=== PATIENT | female | born 1930 | race Caucasian/White ===

== ENCOUNTER 2018-01-15 20:34 | Emergency (ER) | payer MEDICARE ==
[2018-01-15 20:51] VITALS: BP 174/90; PULSE 80; RESP 20; TEMP 98.4
--- NOTE | 2018-01-15 21:50 | XR ---
EXAMINATION TYPE: XR knee complete LT DATE OF EXAM: 01/15/2018 COMPARISON: NONE HISTORY: Knee pain TECHNIQUE: 3 views FINDINGS: I see no fracture nor dislocation. There is spurring on the superior patella. There is vasc ular calcification. There is mild narrowing of the medial joint space. IMPRESSION: No acute abnormality of the left knee. No fracture.
--- NOTE | 2018-01-15 21:57 | ED ---
Lower Extremity Injury HPI - General Chief Complaint: Extremity Injury, Lower Stated Complaint: Knee injury Time Seen by Provider: 01/15/18 21:02 Source: patient, family, RN notes reviewed, old records reviewed Mode of arrival: ambulatory Limitations: no limitations - History of Present Illness Initial Comments: This Patient is an 87-year-old female who presents emergency room today with her friends with chief complaint of left knee pain. Patient reports that she twisted her knee wrong when she was putting things away in the fridge. She reports no pain with range of motion but only pain with ambulation. Patient states that she's had no numbness tingling or leg. No previous injury. - Related Data Previous Rx's Medication Instructions Recorded Naproxen [EC-Naprosyn] 500 mg PO BID #20 tablet. 01/15/18 Allergies Allergy/AdvReac Type Severity Reaction Status Date / Time No Known Allergies Allergy Verified 01/15/18 20:51 Review of Systems ROS Statement: Those systems with pertinent positive or pertinent negative responses have been documented in the HPI. ROS Other: All systems not noted in ROS Statement are negative. Past Medical History Past Medical History: Hyperlipidemia, Hypertension History of Any Multi-Drug Resistant Organisms: None Reported Past Surgical History: No Surgical Hx Reported Past Psychological History: No Psychological Hx Reported Smoking Status: Never smoker Past Alcohol Use History: None Reported Past Drug Use History: None Reported General Exam - General Exam Comments Initial Comments: Well-appearing 87-year-old female. No acute distress. General: Well appearing, well nourished, in no distress. Oriented x 3, normal mood and affect . Ambulating without difficulty. Skin: Good turgor, no rash, unusual bruising or prominent lesions Hair: Normal texture and distribution. HEENT: Head: Normocephalic, atraumatic, no visible or palpable masses, depressions, or scaring. Eyes: Visual acuity intact, conjunctiva clear, sclera non-icteric, EOM intact, PERRL. Ears: EACs clear, TMs translucent & cone of light visualized. hearing intact. Nose: No external lesions, mucosa non-inflamed, septum and turbinates normal Mouth: Mucous membranes moist, no mucosal lesions. Teeth/Gums: No obvious caries or periodontal disease. No gingival inflammation or significant resorption. Pharynx: Mucosa non-inflamed, no tonsillar hypertrophy or exudate Neck: Supple, without lesions, bruits, or adenopathy, thyroid non-enlarged and non-tender Heart: No cardiomegaly or thrills; regular rate and rhythm, no murmur or gallop Lungs: Clear to auscultation and percussion Abdomen: Bowel sounds normal, no tenderness, organomegaly, masses, or hernia Back: Spine normal without deformity or tenderness, no CVA tenderness Extremities: Patient has full range motion of the left knee. Normal pulses distally. Normal sensation range motion of the toes. No deformities noted of the leg. Musculoskeletal: Normal gait and station. No misalignment, asymmetry, crepitation, defects, tenderness, masses, effusions, decreased range of motion, instability, atrophy or abnormal strength or tone in the head, neck, spine, ribs , pelvis or extremities. Neurologic: CN 2-12 normal. Sensation to pain, touch, and proprioception normal. DTRs normal in upper and lower extremities. No pathologic reflexes. Limitations: no limitations Course Vital Signs 01/15/18 20:46 Temperature 98.4 F Pulse Rate 80 Respiratory 20 Rate Blood Pressure 174/90 O2 Sat by Pulse 97 Oximetry Medical Decision Making - Medical Decision Making Patient is an 87-year-old female who presents emergency room today with left knee pain. Patient reports she twisted while she was putting fluid within the fridge. She has full range of motion of the knee. No laxity noted. Normal pulses and sensation distally. There is no crepitus or deformity of the knee. X-rays were completed today and was normal. Discussed likely she has maybe a meniscal tear or sprain. Discussed putting the Patient in the wrap and having her follow-up with orthopedics and given a prescription for crutches and a temperature medication. Patient agrees to treatment plan will comply. Return parameters were discussed. - Radiology Data Radiology results: report reviewed Normal left knee x-ray. Disposition Clinical Impression: Knee sprain Disposition: HOME SELF-CARE Condition: Good Instructions: Knee Sprain (ED) Additional Instructions: Patient advised to talk to primary care physician and ortho. Return to emergency department if any alarming signs or symptoms occur. Prescriptions: Naproxen [EC-Naprosyn] 500 mg PO BID #20 tablet.dr Is patient prescribed a controlled substance at d/c from ED?: No Referrals: Tommy Cornelius MD [Primary Care Provider] - 1-2 days David Dobson MD [STAFF PHYSICIAN] - 1-2 days Time of Disposition: 21:54
== END 2018-01-15 22:21 | disposition home or self-care (01) ==
LOC: EC 20:34
DX: S83.92XA Sprain of unspecified site of left knee, initial encounter (principal); X50.1XXA Overexertion from prolonged static or awkward postures, initial encounter; Y93.89 Activity, other specified
CPT/HCPCS: 73562; 99284; L1830 ×2

== ENCOUNTER 2018-06-04 08:41 | Day surgery (SDC) | payer MEDICARE ==
[2018-06-01 14:43] VITALS: BMI 21.9
[~2018-06-04 08:41] MED LIST: SODIUM CHLORIDE 0.9% 1,000 ML IV SCH
[2018-06-04 09:17] VITALS: RESP 20; TEMP 97.6
[2018-06-04] MEDS ORDERED: SODIUM CHLORIDE 0.9% 500 ML 500 ML IV ONE (10:10)
[2018-06-04 11:45] VITALS: BP 120/60
--- NOTE | 2018-06-04 20:23 | P.PCN ---
Preoperative Diagnosis: Diagnosis syncope Twelve-lead ECG shows sinus rhythm mildly prolonged MO interval interval of [address] segments no delta waves normal QT interval Tilt table test per protocol Baseline blood pressure 140/68 mmHg Baseline 156 beats a minute. Patient was tilted upright at an angle of 70 per protocol. There was any major drop in her blood pressure to 126/65 mmHg and the progressive decline to 75 mmHg. She felt shaky she was unresponsive and she was laid supine her blood pressure normalized 221/61 mmHg Likely severe orthostatic hypotension syndrome/dysautonomia, with immediate drop in blood pressure without a comments that it increase in heart rate
== END 2018-06-04 11:44 | disposition home or self-care (01) ==
LOC: CATHEP 08:41
PROVIDERS: ATTEND Internal Medicine Clinical Cardiac Electrophysiology
DX: R55 Syncope and collapse (principal)
CPT/HCPCS: 93660

== ENCOUNTER 2019-11-01 22:12 | Emergency (ER) | payer MEDICARE ==
[2019-11-01 22:25] VITALS: TEMP 98.1
[2019-11-01 23:34] LABS: Basophils % (A) 0 %; Eosinophils # (A) 0.2 k/uL (0-0.7); Eosinophils % (A) 2 %; HGB 12.9 gm/dL (11.4-16.0); Lymphocytes % (A) 19 %; MCH 29.8 pg (25.0-35.0); MCHC 33.8 g/dL (31.0-37.0); MCV 88.2 fL (80.0-100.0); Mean Platelet Volume 6.8; Monocytes # (A) 0.7 k/uL (0-1.0); Monocytes % (A) 7 %; Neutrophils # (A) 7.2 k/uL (1.3-7.7); Neutrophils % (A) 69 %; Platelet Count 305 k/uL (150-450); RBC 4.31 m/uL (3.80-5.40); RDW 12.6 % (11.5-15.5); WBC 10.3 k/uL (3.8-10.6)
[2019-11-01 23:38] LABS: Appearance,Urine Clear (Clear); Bacteria,Urine Moderate /hpf; Bilirubin,Urine Negative (Negative); Blood,Urine Negative (Negative); Color,Urine Light Yellow; Glucose,Urine (UA) Negative (Negative); Hyaline Casts,Urine 1 /lpf (0-2); Ketones,Urine Negative (Negative); Leukocyte Esterase,Urine Small (Negative); Mucus,Urine Rare /hpf; Nitrite,Urine Negative (Negative); PH, Urine 5.5 (5.0-8.0); Protein,Urine Negative (Negative); Specific Gravity,Urine 1.007 (1.001-1.035); Squamous Epithelial Cell,Urine <1 /hpf (0-4); Urobilinogen,Urine <2.0 mg/dL (<2.0); WBC,Urine 6 /hpf (0-5)
[2019-11-01] MEDS: NEBIVOLOL 5 MG TAB PO STA ×2 (23:45→23:52)
[2019-11-01 23:47] VITALS: BP 142/98
[2019-11-01 23:48] VITALS: PULSE 80; RESP 16
[2019-11-01 23:58] LABS: Albumin 4.4 g/dL (3.5-5.0); Calcium 9.3 mg/dL (8.4-10.2); Potassium 4.1 mmol/L (3.5-5.1); Total Bilirubin 0.9 mg/dL (0.2-1.3); Total Protein 7.3 g/dL (6.3-8.2)
--- NOTE | 2019-11-02 00:03 | ED ---
General Adult HPI - General Chief complaint: Recheck/Abnormal Lab/Rx Stated complaint: High BP Time Seen by Provider: 11/01/19 22:27 Source: patient Mode of arrival: wheelchair Limitations: no limitations - History of Present Illness Initial comments: Lucia is a very pleasant 89-year-old female with history of hypertension who presents the ER today because she checked her blood pressure which she reports she does every 2 days noted that it was elevated 190/110 at home. Patient reports her blood pressures never elevated like this. She denies any headache, vision change, chest pain, shortness of breath and patient is on antihypertensives and reports she has been compliant with her medications. No recent medication changes. Ears ago she was on a beta shannon but is been taken off of that. She denies any recent illness. She reports other than checking her blood pressure noting that it was elevated she's been feeling well. - Related Data Home Medications Medication Instructions Recorded Confirmed Atorvastatin [Lipitor] 20 mg PO DAILY 06/01/18 06/01/18 Calcium Carbonate [Calcium] 600 mg PO DAILY 06/01/18 06/01/18 Levothyroxine Sodium [Synthroid] 50 mcg PO DAILY 06/01/18 06/01/18 Multivit-Min/FA/Lycopen/Lutein 1 each PO DAILY 06/01/18 06/01/18 [Centrum Silver Tablet] Naproxen [EC-Naprosyn] 500 mg PO QAM 06/01/18 06/01/18 Nebivolol HCl [Bystolic] 10 mg PO DAILY 06/01/18 06/01/18 Spironolactone [Aldactone] 12.5 mg PO DAILY 06/01/18 06/01/18 Irbesartan 300 mg PO DAILY 06/04/18 06/04/18 Allergies Allergy/AdvReac Type Severity Reaction Status Date / Time No Known Allergies Allergy Verified 11/01/19 22:25 Review of Systems ROS Statement: Those systems with pertinent positive or pertinent negative responses have been documented in the HPI. ROS Other: All systems not noted in ROS Statement are negative. Past Medical History Past Medical History: Hyperlipidemia, Hypertension, Thyroid Disorder Additional Past Medical History / Comment(s): fell(blacked out) at [facility] 05/26/18 and head-has deep cut with stitches on back of head History of Any Multi-Drug Resistant Organisms: None Reported Past Surgical History: No Surgical Hx Reported Additional Past Surgical History / Comment(s): dental implants with anesthesia, geovanna cataracts Past Anesthesia/Blood Transfusion Reactions: No Reported Reaction Past Psychological History: No Psychological Hx Reported Smoking Status: Never smoker Past Alcohol Use History: None Reported Past Drug Use History: None Reported - Past Family History Mother Family Medical History: No Reported History General Exam - General Exam Comments Initial Comments: Physical Exam GENERAL: Patient is well-developed and well-nourished. Patient is nontoxic and well- hydrated and is in no distress. HENT: Normocephalic, Atraumatic. EYES: PERRL, EOMI PULMONARY: Unlabored respirations. No audible rales rhonchi or wheezing was noted. CARDIOVASCULAR: There is a regular rate and rhythm without any murmurs gallops or rubs. ABDOMEN: Soft and nontender with normal bowel sounds. SKIN: Skin is clear with no lesions or rashes and otherwise unremarkable. : Deferred NEUROLOGIC: Patient is alert and oriented x3. Moving all extremities spontaneously MUSCULOSKELETAL: Normal extremities with adequate strength and full range of motion. No lower extremity swelling or edema. No calf tenderness. PSYCHIATRIC: Normal psychiatric evaluation. Limitations: no limitations Course Vital Signs 11/01/19 11/01/19 22:23 23:46 Temperature 98.1 F Pulse Rate 98 80 Respiratory 20 16 Rate Blood Pressure 164/93 142/98 O2 Sat by Pulse 98 98 Oximetry Medical Decision Making - Medical Decision Making The patient was seen and evaluated, history is obtained from patient Patient with asymptomatic hypertension however has significant hypertension on arrival with a diastolic of 125 Baseline labs obtained, patient previously took Bystolic, a single dose of this will be ordered Prior to medication being administered the patient's blood pressure normalized at this time I don't feel she would benefit from antihypertensives No previous labs for comparison, patient is a mildly elevated BUN/creatinine, mildly hyponatremic, results discussed with the patient, she was advised to hydrate and follow with her primary care physician All questions pertaining care were answered return parameters were discussed the patient was discharged home in stable condition - Lab Data Result diagrams: 11/01/19 23:11 11/01/19 23:11 Lab Results 11/01/19 11/01/19 11/01/19 Range/Units 23:11 23:11 23:11 WBC 10.3 (3.8-10.6) k/uL RBC 4.31 (3.80-5.40) m/uL Hgb 12.9 (11.4-16.0) gm/dL Hct 38.0 (34.0-46.0) % MCV 88.2 (80.0-100.0) fL MCH 29.8 (25.0-35.0) pg MCHC 33.8 (31.0-37.0) g/dL RDW 12.6 (11.5-15.5) % Plt Count 305 (150-450) k/uL Neutrophils % 69 % Lymphocytes % 19 % Monocytes % 7 % Eosinophils % 2 % Basophils % 0 % Neutrophils # 7.2 (1.3-7.7) k/uL Lymphocytes # 2.0 (1.0-4.8) k/uL Monocytes # 0.7 (0-1.0) k/uL Eosinophils # 0.2 (0-0.7) k/uL Basophils # 0.0 (0-0.2) k/uL Sodium 130 L (137-145) mmol/L Potassium 4.1 (3.5-5.1) mmol/L Chloride 96 L (98-107) mmol/L Carbon Dioxide 24 (22-30) mmol/L Anion Gap 10 mmol/L BUN 23 H (7-17) mg/dL Creatinine 1.11 H (0.52-1.04) mg/dL Est GFR (CKD-EPI)AfAm 51 (>60 ml/min/1.73 sqM) Est GFR (CKD-EPI)NonAf 44 (>60 ml/min/1.73 sqM) Glucose 118 H (74-99) mg/dL Calcium 9.3 (8.4-10.2) mg/dL Total Bilirubin 0.9 (0.2-1.3) mg/dL AST 27 (14-36) U/L ALT 17 (4-34) U/L Alkaline Phosphatase 86 (38-126) U/L Total Protein 7.3 (6.3-8.2) g/dL Albumin 4.4 (3.5-5.0) g/dL Urine Color Light Yellow Urine Appearance Clear (Clear) Urine pH 5.5 (5.0-8.0) Ur Specific [place] 1.007 (1.001-1.035) Urine Protein Negative (Negative) Urine Glucose (UA) Negative (Negative) Urine Ketones Negative (Negative) Urine Blood Negative (Negative) Urine Nitrite Negative (Negative) Urine Bilirubin Negative (Negative) Urine Urobilinogen <2.0 (<2.0) mg/dL Ur Leukocyte Esterase Small H (Negative) Urine WBC 6 H (0-5) /hpf Ur Squamous Epith Cells <1 (0-4) /hpf Urine Bacteria Moderate H (None) /hpf Hyaline Casts 1 (0-2) /lpf Urine Mucus Rare H (None) /hpf Disposition Clinical Impression: Hypertension Disposition: HOME SELF-CARE Condition: Stable Additional Instructions: As we discussed your labs are suggestive of mild dehydration, make sure drinking plenty of fluids, if he checked her blood pressure at its elevated try to relax for 30 minutes before rechecking. Follow-up with her primary care doctor this week to discuss blood pressure Return to the ER if you have any chest pain, shortness breath, headache vision changes or develop any new or concerning symptoms . Is patient prescribed a controlled substance at d/c from ED?: No Referrals: Megan Baca DO [Primary Care Provider] - 1-2 days
[2019-11-02 01:39] LABS: T4, Free (Free Thyroxine) 1.29 ng/dL (0.78-2.19)
== END 2019-11-02 00:23 | disposition home or self-care (01) ==
LOC: EC 22:12
DX: I10 Essential (primary) hypertension (principal); E78.5 Hyperlipidemia, unspecified; E07.9 Disorder of thyroid, unspecified; Z79.890 Hormone replacement therapy; Z79.899 Other long term (current) drug therapy; Z98.42 Cataract extraction status, left eye; Z98.41 Cataract extraction status, right eye
CPT/HCPCS: 36415; 80053; 81001; 84439; 84443; 85025; 99283

== ENCOUNTER → 2020-03-22 | Outpatient (CLI) | payer MEDICARE ==
[2020-03-22 11:17] LABS: HCT 37.8 % (34.0-46.0); HGB 12.9 gm/dL (11.4-16.0); MCH 30.5 pg (25.0-35.0); MCHC 34.1 g/dL (31.0-37.0); MCV 89.3 fL (80.0-100.0); Mean Platelet Volume 6.4; Platelet Count 321 k/uL (150-450); RBC 4.23 m/uL (3.80-5.40); RDW 12.6 % (11.5-15.5); WBC 9.4 k/uL (3.8-10.6)
[2020-03-22 20:21] LABS: African American GFR (CKD) 46.4 (60.0-200.0); Albumin 4.8 g/dL (3.80-4.90); Albumin/Globulin Ratio 2.09 (1.60-3.17); BUN/Creat Ratio 23.33 Ratio (12.00-20.00); Calcium 9.6 mg/dL (8.7-10.3); Globulin 2.3 g/dL (1.6-3.3); Magnesium 1.9 mg/dL (1.5-2.4); Potassium 4.8 mmol/L (3.5-5.5); Total Bilirubin 1.2 mg/dL (0.3-1.2); Total Protein 7.1 g/dL (6.2-8.2)
== END | disposition home or self-care (01) ==
LOC: LABWHC1 10:22
PROVIDERS: ATTEND Nurse Practitioner Adult Health
DX: I10 Essential (primary) hypertension (principal)
CPT/HCPCS: 36415; 80053; 83735; 84443; 84481; 85027